=== PATIENT | female | born 1950 | race Caucasian/White ===

== ENCOUNTER 2020-11-28 13:56 | Emergency (ER) | payer OTHER ==
[2020-11-28 15:21] LABS: BASOPHIL 0.4 % (0-2); EOSINOPHIL 1.3 % (0-7); HCT 32.7 % (37.0-47.0); HGB 10.2 g/dl (12.5-16.0); LYMPHOCYTE 20.8 % (15-48); MCH 26.7 pg (25.0-31.0); MCHC 31.2 g/dL (32.0-36.0); MCV 85.6 fL (78.0-100.0); MONOCYTE 4.5 % (0-12); MPV 10.5 fL (6.0-9.5); NEUTROPHIL 72.2 % (41-80); NRBC 0; PLT 271 K/uL (150-400); RBC 3.82 M/uL (4.20-5.40); RDW 13.2 % (11.5-14.0); WBC 15.8 K/uL (4.0-10.5)
[2020-11-28 15:25] LABS: INR 1.04 (0.9-1.2); PTT 23.4 SECONDS (24.4-34.7)
[2020-11-28 15:41] LABS: PRO-BNP 777 pg/mL (<125)
[2020-11-28 15:44] LABS: ALBUMIN 3.4 g/dL (3.4-5.0); BILIRUBIN - TOTAL 0.6 mg/dL (0.2-1.0); CREATININE 0.53 mg/dL (0.51-0.95); GLOBULIN (CALCULATION) 3.1 g/dL; MAGNESIUM 1.6 mg/dL (1.8-2.4); POTASSIUM 4.5 mmol/L (3.5-5.1); TOTAL PROTEIN 6.5 g/dL (6.4-8.2)
== END 2020-11-28 19:30 | disposition other institution (70) ==
LOC: FER 13:56
PROVIDERS: Emergency Medicine
DX: T46.1X1A Poisoning by calcium-channel blockers, accidental (unintentional), initial encounter (principal); R57.0 Cardiogenic shock; I44.2 Atrioventricular block, complete; I49.9 Cardiac arrhythmia, unspecified; I48.91 Unspecified atrial fibrillation; I10 Essential (primary) hypertension; Z88.2 Allergy status to sulfonamides; Z20.822 Contact with and (suspected) exposure to COVID-19; Y92.9 Unspecified place or not applicable
CPT/HCPCS: 36415; 71045; 80053; 83605; 83735; 83880; 84443; 84484; 85025; 85610; 85730; 93005; J1265; J2405; J3010; U0002